=== PATIENT | male | born 1985 | race Caucasian/White ===

== ENCOUNTER 2016-09-07 09:51 | Emergency (ER) | payer OTHER ==
[~2016-09-07 09:51] MED LIST: ALLERGY10 M1 PO; AMOXICILLIN PO; ATIVAN PO; BACTRIM DS TABL1 TA1 PO; BACTRIM DS TABL1 TAB PO; BANZEL PO; BANZEL400 MG PO; CERTAGEN PO; CLARITIN10 M1 PO; CLARITIN10 MG PO; COLACE PO; DEPAKOTE SPRIN125 MG PO; DIASTAT ACUDIAL1 KIT; DIASTAT ACUDIAL1 KIT PR; DIASTAT10 MG PR; KEFLEX500 MG PO; KEPPRA XR750 MG PO; KEPPRA750 MG PO; KLONOPIN PO; KLONOPIN0.5 MG PO; MUCINEX50 MG/BOX PO; ONFI10 MG PO; PHENOBARB PO; PHENOBARBITAL32.4 MG PO; SYNTHROID88 MCG PO; VIMPAT100 MG PO; VIMPAT200 MG PO; VIT D; ZANTAC PO; ZITHROMAX PO
== END 2016-09-07 12:01 | disposition home or self-care (01) ==
LOC: SED 09:51
DX: G40.909 Epilepsy, unspecified, not intractable, without status epilepticus (principal); I10 Essential (primary) hypertension; Z79.899 Other long term (current) drug therapy
CPT/HCPCS: 99284

== ENCOUNTER 2017-01-03 18:17 | Emergency (ER) | payer OTHER ==
--- NOTE | ~2017-01-03 | CT2 ---
[facility]. [facility] A Service of [facility] RADIOLOGY TEXT RESULTS PATIENT: MARY ROSARIO LOCATION: SED : 81 UNIT #: [id number] AGE: [address]: Rose Zamora SEX: M ORDER DR: [id number] [address] [address] [id number] E MR#: [id number] Acc #: [id number] NAME: MARY ROSARIO : 1985 SEX: M STUDY DATE/TIME: 01/03/2017 20:35 UNIT: SED ROOM: STUDY DESCRIPTION: CT Abd and Pelv W Cont Attending Physician: Rose Zamora Pa-C Ordering Physician: Rose Zamora Pa-C Primary Care Physician: Carlos Manuel Agudelo M.D. MEDICAL IMAGING REPORT This report is preliminary unless electronic signature is present. EXAM CT abdomen and pelvis with IV contrast. HISTORY Left upper and mid abdomen pain. Swelling and redness and pain at prior gastrostomy tube site for [address] abdomen and pelvis was performed with IV contrast. This CT exam was performed with one or more of the following radiation dose reduction techniques: automatic exposure control, adjustment of mA and/or kV according to patient size, and iterative reconstruction. CT abdomen. Exam sensitivity is limited by motion. There is a subcutaneous fluid density mass in the left anterior upper quadrant measuring 3 cm x 3 cm x 2.7 cm. This is adjacent to a probable old gastrostomy tube tract, with slight tenting of the anterior mid gastric body, immediately deep to this lesion. No associated air bubbles, but an infected fluid collection is not excluded. Considerations also include hematoma or seroma. No intraperitoneal fluid or stranding. No hepatic mass or biliary dilatation. The gallbladder, spleen, pancreas, kidneys, and adrenal glands are normal. No bowel dilatation. Multilevel lower thoracic and lumbar spinal fusion with hardware fixation. CT pelvis No pelvic free fluid or inflammatory stranding is identified. Sensitivity is again limited by motion. No bowel dilatation. No adenopathy. Urinary bladder is unremarkable. IMPRESSION [facility] A Service of [facility] RADIOLOGY TEXT RESULTS PATIENT: MARY ROSARIO LOCATION: SED : 81 UNIT #: [id number] AGE: [address]: Rose Zamora PAC SEX: M ORDER DR: 1. Subcutaneous intermediate density mass in the anterior left upper quadrant along the course of a prior gastrostomy tube measures 3 cm x 3 cm x 2.7 cm. Considerations include abscess, seroma or hematoma. No associated air bubbles. Consider aspiration as clinically warranted. 2. No intraperitoneal inflammatory change or free fluid is identified. Exam sensitivity, however, is limited by patient motion artifact. 3. Multilevel lower thoracic and lumbar spinal fusion hardware. Dictated by... Yuri Gregory M.D. THIS IS AN ELECTRONICALLY VERIFIED REPORT Yuri Gregory M.D. at 01/04/2017 11:04 PM KAYLIE/serjio TD: 01/04/2017 06:26 JOB #: [id number] MEDICAL IMAGING REPORT Page 1 of 1
[2017-01-03 19:59] LABS: BASOPHIL% 0.3 % (0-2.5); EOSINOPHIL# 0.2 X10e3 (0-0.7); EOSINOPHIL% 1.7 % (0.0-7.0); HEMATOCRIT 36.3 % (38.0-50.0); HEMOGLOBIN 12.4 gm/dL (13.0-16.0); LYMPHOCYTE# 2.9 X10e3 (1.0-3.5); LYMPHOCYTE% 24.2 % (17.0-45.0); MEAN CELL VOLUME 89.4 FL (83-96); MEAN CORPUSCULAR HEMOGLOBIN 30.4 PG (28-34); MEAN PLATELET VOLUME 7.1 FL (6.5-11.5); MONOCYTE# 0.9 X10e3 (0-1.0); MONOCYTE% 7.3 % (3.0-12.0); NEUTROPHIL% 66.5 % (40-75); PLATELET COUNT 275 X10e3 (140-420); RED BLOOD COUNT 4.07 X10e (3.90-5.60)
[2017-01-03 20:00] LABS: DIFF IND NO
[2017-01-03 20:22] LABS: ALBUMIN SERUM 3.4 g/dL (3.5-5.0); ALKALINE PHOSPHATASE 50 U/L (32-92); ALT (SGPT) 20 U/L (10-40); AST (SGOT) 19 U/L (10-42); BILIRUBIN, DIRECT <0.1 mg/dL (0.0-0.2); BILIRUBIN,INDIRECT 0.3 mg/dL (0.0-0.9); BILIRUBIN,TOTAL 0.4 mg/dL (0.2-2.0); BLOOD UREA NITROGEN 16 mg/dL (9-23); BUN/CREATININE RATIO 26.66; CALCIUM SERUM 9.2 mg/dL (8.4-10.2); CARBON DIOXIDE 30 mmol/L (22-31); CHLORIDE 97 mmol/L (100-111); CREATININE SERUM 0.6 mg/dL (0.6-1.4); GLOM FILT RATE Estimated 132.2 mL/min (>60); GLUCOSE FASTING 92 mg/dL (70-110); POTASSIUM 4.2 mmol/L (3.5-5.1); PROTEIN TOTAL SERUM 8.3 g/dL (6.0-8.3); SODIUM 135 mmol/L (135-145)
== END 2017-01-03 22:58 | disposition home or self-care (01) ==
LOC: SED 18:17
PROVIDERS: Physician Assistant Medical
DX: L02.211 Cutaneous abscess of abdominal wall (principal); K21.9 Gastro-esophageal reflux disease without esophagitis; G40.909 Epilepsy, unspecified, not intractable, without status epilepticus; Z98.890 Other specified postprocedural states
CPT/HCPCS: 36415; 74177; 80048; 80076; 85025; 87070; 87205; 99284; Q9967